=== PATIENT | female | born 1995 | race Caucasian/White ===

== ENCOUNTER 2016-12-13 18:55 | Emergency (ER) | payer OTHER ==
[2016-12-13 19:10] VITALS: BP 142/87; PULSE 91; RESP 16; TEMP 98.2
[2016-12-13] MEDS ORDERED: KETOROLAC 60 MG/2 ML VIAL IM STA (19:15)
[2016-12-13] MEDS ORDERED: ORPHENADRINE 30 MG/ML 2 ML VIAL IM STA (19:15)
--- NOTE | 2016-12-13 19:17 | ED ---
General Adult HPI - General Chief complaint: Back Pain/Injury Stated complaint: back pain Time Seen by Provider: 12/13/16 19:10 Source: patient, RN notes reviewed Mode of arrival: ambulatory Limitations: no limitations - History of Present Illness Initial comments: 21-year-old female presents to the emergency department with a chief complaint of low back pain. Patient states been hurting for about 5 days. 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 Patient states she has had back pain AT work in the past. Patient states never lasted these 5 days. Patient has a loss by bladder functioning saddle anesthesia with this. Patient was concerned due to her symptoms so she thought that she should be evaluated.Patient denies any recent fever, chills, shortness of breath, chest pain, abdominal pain, nausea vomiting, numbness or tingling, dysuria or hematuria, constipation or diarrhea, headaches or visual changes, or any other current symptoms. - Related Data Previous Rx's Medication Instructions Recorded Cyclobenzaprine [Flexeril] 10 mg PO TID #20 tablet 12/03/15 Naproxen [Naprosyn] 500 mg PO Q12HR #24 tab 12/03/15 Orphenadrine [Norflex] 100 mg PO Q12H #10 tablet.er 12/13/16 Allergies Allergy/AdvReac Type Severity Reaction Status Date / Time No Known Allergies Allergy Verified 12/13/16 19:09 Review of Systems ROS Statement: Those systems with pertinent positive or pertinent negative responses have been documented in the HPI. ROS Other: All systems not noted in ROS Statement are negative. Past Medical History Past Medical History: No Reported History History of Any Multi-Drug Resistant Organisms: None Reported Additional Past Surgical History / Comment(s): hand surgery Past Psychological History: Anxiety, Depression Smoking Status: Current every day smoker Past Alcohol Use History: Rare Past Drug Use History: Marijuana, Prescription Drug Abuse General Exam - General Exam Comments Initial Comments: General: The patient is awake and alert, in no distress, and does not appear acutely ill. Eye: Pupils are equal, round and reactive to light, extra-ocular movements are intact; there is normal conjunctiva bilaterally. No signs of icterus. Ears, nose, mouth and throat: There are moist mucous membranes and no oral lesions. Neck: The neck is supple, there is no tenderness. Cardiovascular: There is a regular rate and rhythm. No murmur, rub or gallop is appreciated. Respiratory: Lungs are clear to auscultation, respirations are non-labored, breath sounds are equal. No wheezes, stridor, rales, or rhonchi. Back: There is no tenderness to palpation in the midline. There is no obvious deformity. No rashes noted. Musculoskeletal: Normal ROM, no tenderness, There is no pedal edema. There is no calf tenderness or swelling. Sensation intact. Pulses equal bilaterally 2+. Neurological: CN II-XII intact, There are no obvious motor or sensory deficits. Coordination appears grossly intact. Speech is normal. Skin: Skin is warm and dry and no rashes or lesions are noted. Psychiatric: Cooperative, appropriate mood & affect, normal judgment. Limitations: no limitations Course Vital Signs 12/13/16 19:06 Temperature 98.2 F Pulse Rate 91 Respiratory 16 Rate Blood Pressure 142/87 O2 Sat by Pulse 99 Oximetry Medical Decision Making - Medical Decision Making 20-year-old male presents emergency Department chief complaint low back pain. This and patient's x-rays reviewed there are no acute process. This time patient is suspicious for lumbar back strain. This time westarted pt on norflex forhome. This return parameters and follow-up and all questions. Patient states that she understood and she is negative plan. This time she'll be discharged. - Radiology Data Radiology results: report reviewed, image reviewed Disposition Clinical Impression: Lumbar strain Disposition: HOME SELF-CARE Condition: Stable Instructions: Acute Low Back Pain (ED) Additional Instructions: Please use medication as discussed. Please follow up with family doctor if symptoms have not improved over the next two days. Please return to the emergency room if your symptoms increase or worsen or for any other concerns. Prescriptions: Orphenadrine [Norflex] 100 mg PO Q12H #10 tablet.er Referrals: Bc Huber MD [STAFF PHYSICIAN] - 1-2 days
--- NOTE | 2016-12-13 19:33 | XR ---
EXAMINATION TYPE: XR lumbar spine 2 or 3V DATE OF EXAM: 12/13/2016 CLINICAL HISTORY: Intermittent back pain with no known injury TECHNIQUE: Frontal and lateral images of the lumbar spine are obtained. COMPARISON: None FINDINGS: There are 5 lumbar type vertebral bodies identified. The lumbar spine shows satisfactory alignment without evidence of acute fracture or dislocation. Vertebral body heights and disk space he ights are within normal limits. The overlying soft tissue appears unremarkable. IMPRESSION: No acute fracture or dislocation is seen in the lumbar spine.
== END 2016-12-13 19:39 | disposition home or self-care (01) ==
LOC: EC 18:55
DX: S39.012A Strain of muscle, fascia and tendon of lower back, initial encounter (principal); F17.200 Nicotine dependence, unspecified, uncomplicated; X58.XXXA Exposure to other specified factors, initial encounter
CPT/HCPCS: 99283; 96372 ×2; 72100; J2360; J1885

== ENCOUNTER 2016-12-27 18:56 | Emergency (ER) | payer OTHER ==
[2016-12-27 18:59] VITALS: BP 132/65; PULSE 101; RESP 18; TEMP 99.6
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
--- NOTE | 2016-12-29 08:04 | CDI ---
Documentation Clarification OP Dear Cas Fitzpatrick Please do addendum to ED report for missing HPI and Physical examination. Thank you, Hal Kunz Concrete Saw Operator If you have any questions, please contact Bottom Saw Operator at [phone] [facility]
== END 2016-12-27 20:00 | disposition home or self-care (01) ==
LOC: EC 18:56
DX: L50.9 Urticaria, unspecified (principal); F17.200 Nicotine dependence, unspecified, uncomplicated
CPT/HCPCS: 99283